=== PATIENT | male | born 1970 | race Caucasian/White ===

== ENCOUNTER 2017-02-27 04:51 | Emergency (ER) | payer OTHER ==
[~2017-02-27] VITALS: Ht 172.7 cm; Wt 81.5 kg
[~2017-02-27 04:51] MED LIST: CHLO100T24 PO; DIVA500T69 PO
[2017-02-27 04:53] VITALS: BP 136/98
[2017-02-27] MEDS ORDERED: TRAZ-144 PO (04:58)
[2017-02-27] MEDS ORDERED: HALO5 PO (04:58)
[2017-02-27] MEDS ORDERED: SERT50TA12 PO (04:58)
[2017-02-27] MEDS ORDERED: ARIP5TAB9 PO (04:58)
[2017-02-27] MEDS ORDERED: DIPH25 PO (04:58)
[2017-02-27] MEDS ORDERED: HALOPERIDOL 5 MG TABLET PO ONE (05:45)
[2017-02-27] MEDS ORDERED: LORazepam 1 MG TABLET PO ONE (05:45)
== END 2017-02-27 05:47 | disposition home or self-care (01) ==
LOC: EMS 04:54
DX: F31.9 Bipolar disorder, unspecified (principal); F20.9 Schizophrenia, unspecified; F11.90 Opioid use, unspecified, uncomplicated; F12.90 Cannabis use, unspecified, uncomplicated; F14.90 Cocaine use, unspecified, uncomplicated
CPT/HCPCS: 99284

== ENCOUNTER 2017-02-28 02:04 | Emergency (ER) | payer OTHER ==
[~2017-02-28] VITALS: Ht 172.7 cm; Wt 81.8 kg
[~2017-02-28 02:04] MED LIST changes: +ARIP5TAB9 PO; +DIPH25 PO; +HALO5 PO; +SERT50TA12 PO; +TRAZ-144 PO
[2017-02-28 03:05] LABS: BASOPHILS # (AUTO) 0.04 K/uL (0.00-0.20); BASOPHILS % (AUTO) 0.3 % (0.0-2.0); EOSINOPHILS # (AUTO) 0.08 K/uL (0.00-0.70); EOSINOPHILS % (AUTO) 0.54 % (1.0-6.0); HEMOGLOBIN 16.5 g/dL (13.5-17.5); LYMPHOCYTES # (AUTO) 2.8 K/uL (1.0-4.8); LYMPHOCYTES % (AUTO) 19.7 % (22.0-44.0); MEAN CORPUSCULAR HGB CONC 33.7 G/dL (31.0-37.0); MEAN CORPUSCULAR VOLUME 89 fL (80-100); MONOCYTES # (AUTO) 1.6 K/uL (0.1-1.0); MONOCYTES % (AUTO) 11.4 % (2.0-9.0); NEUTROPHILS # (AUTO) 9.6 K/uL (1.8-7.7); NEUTROPHILS % (AUTO) 68.1 % (40.0-70.0); PLATELET COUNT (AUTO) 325 K/uL (150-450); RED CELL DISTRIBUTION WIDTH 13.3 % (11.5-14.5); WHITE BLOOD COUNT (AUTO) 14.2 K/uL (4.5-11.0)
[2017-02-28 03:08] LABS: ANION GAP 10 mmol/L (8-16); CARBON DIOXIDE 29 mmol/L (22-29); CHLORIDE 100 mmol/L (98-107); CREATININE 1.04 mg/dL (0.60-1.30); GLOMERULAR FILTR. RATE CALC > 60 mL/min (>60); POTASSIUM 3.3 mmol/L (3.5-5.1); SODIUM SERUM 139 mmol/L (136-145); UREA NITROGEN, BLOOD 10 mg/dL (7-18)
[2017-02-28 03:14] LABS: ALANINE AMINOTRANSFERASE 29 U/L (12-78); ALBUMIN 4.5 g/dL (3.4-5.0); ASPARTATE AMINOTRANSFERASE 32 U/L (15-37); BILIRUBIN,TOTAL 0.6 mg/dL (0.1-1.0); VALPROIC ACID 71 mcg/mL (50-100)
[2017-02-28] MEDS ORDERED: ChlorproMAZINE HCL 25 MG TABLET PO ONE (03:30)
[2017-02-28 03:52] VITALS: BP 132/85
== END 2017-02-28 03:55 | disposition home or self-care (01) ==
LOC: EMS 02:06
DX: F41.9 Anxiety disorder, unspecified (principal); F31.9 Bipolar disorder, unspecified; F20.9 Schizophrenia, unspecified; F11.90 Opioid use, unspecified, uncomplicated; F12.90 Cannabis use, unspecified, uncomplicated; F14.90 Cocaine use, unspecified, uncomplicated
CPT/HCPCS: 36415; 80053; 80164; 80307; 85025; 99284; G0480